=== PATIENT | female | born 1975 | race Caucasian/White ===

== ENCOUNTER → 2021-06-02 | Outpatient (CLI) | payer OTHER ==
[2021-06-02 13:30] VITALS: BP 114/78; PULSE 79; RESP 18; TEMP 98.4
--- NOTE | 2021-06-02 14:40 | P.HPOB ---
History of Present Illness H&P Date: 06/02/21 Chief Complaint: The patient is here for her routine gynecologic exam. This is a 45-year-old 031 with an LMP of the end of April. The patient is here to establish with this office. The patient is without gynecologic complaints. Menstrual periods are regular every month lasting about 7 days with some spotting before and after. The patient states she has a long history of frequent UTIs and averages about 6 per year. Recently she went about 7 months without being treated for a UTI. She had seen a uro- jewelry sorter for this and she was told by somebody that she has interstitial cystitis. She has a ParaGard IUD in place and this was placed about 9 years ago. Review of Systems She is getting about 10 pounds over the past year. Respiratory: She states she can get slightly short of breath with strenuous exertion. Cardiac: Occasional fluttering when she tries to quit smoking. GI: No problems. Past Medical History Past Medical History: Asthma Additional Past Medical History / Comment(s): Frequent UTIs. 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 History of Any Multi-Drug Resistant Organisms: None Reported Past Surgical History: Orthopedic Surgery Additional Past Surgical History / Comment(s): Knee surgery. D&C. Upper endoscopy with colonoscopy in 2000. Past Psychological History: No Psychological Hx Reported Smoking Status: Current every day smoker (Half a pack per day.) Past Alcohol Use History: Occasional (6 per week) Past Drug Use History: None Reported Additional History: She has been since 2019 and this is her second marriage. They have been together since 2003. 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 - Past Family History Mother Family Medical History: COPD Additional Family Medical History / Comment(s): Maternal grandmother had diabetes. Father Family Medical History: COPD Additional Family Medical History / Comment(s): Diverticulosis. Medications and Allergies Home Medications Medication Instructions Recorded Confirmed Type Albuterol Inhaler [Ventolin Hfa 1 puff INHALATION RT-TID 06/02/21 06/02/21 History Inhaler] Iron 18 mg PO DAILY 06/02/21 06/02/21 History Allergies Allergy/AdvReac Type Severity Reaction Status Date / Time No Known Allergies Allergy Unverified 06/02/21 13:22 Exam Vital Signs Temp Pulse Resp BP Pulse Ox 06/02/21 13:24 98.4 F 79 18 114/78 100 Intake and Output 06/01/21 06/02/21 06/02/21 22:59 06:59 14:59 Other: Weight 74.389 kg Height 5 feet 4 inches, weight 164 pounds, BMI 28.2. This is a well-developed well-nourished white female who is alert and oriented times 3 in no acute distress. HEENT: Within normal limits. NECK: Supple without mass or thyromegaly. CHEST AND LUNGS: Clear to auscultation. HEART: Regular rate and rhythm. BREASTS: Are without mass or discharge. AXILLARY EXAM: Negative for adenopathy. BACK: Negative for CVA tenderness. ABDOMEN: Soft, nontender, without palpable masses. PELVIC EXAM: Normal external genitalia. Cervix and vagina appear normal. There is an IUD string protruding from the cervix by about 1 cm. There is no unusual discharge. There is no evidence of prolapse. The uterus is midposition, nongravid size and nontender. There are no palpable adnexal masses or tenderness. RECTAL EXAM: negative for mass or tenderness and is negative for occult blood. EXTREMITIES: Nontender. IMPRESSION: 1. 45-year-old female with normal gynecologic exam who has a ParaGard IUD in place. 2. History of frequent UTIs and possible interstitial cystitis per the patient. PLAN: 1. Pap smear cotest was performed. 2. Self breast awareness was discussed with the patient. 3. Screening mammogram was done earlier this year at a different hospital. 4. I recommended that she try to quit smoking and we have discussed many reasons why this is important. 5. Osteoporosis prevention was discussed. I have stressed the importance of adequate calcium, vitamin D and regular exercise. Recommended amounts of calcium and vitamin D were also discussed. 6. She will keep a menstrual calendar and call if menstrual problems. 7. She understands the ParaGard IUD is approved for 10 years. She states she will consider control options. 8. We have discussed ways trying to prevent urinary tract infections. I stressed the importance of trying to empty the bladder as completely as possible by giving herself more time and by relaxing when she voids. 9. She was advised to return in one year for her annual well woman exam and as needed.
--- NOTE | 2021-06-10 09:12 | P.PN ---
Progress Note - Text Progress Note Date: 06/10/21 OUTPATIENT FOLLOW-UP NOTE TEST(S)/RESULTS: Test results from 06/02/2021 include negative Pap smear and negative high risk HPV testing. METHOD OF NOTIFICATION: The patient was notified by phone. PATIENT COMMENTS: She is happy to hear these results. DIAGNOSIS: Negative Pap smear cotest DISCUSSION: PLAN: She was advised to return in one year for her annual well woman exam.
== END | disposition home or self-care (01) ==
LOC: WWCWWP 13:10
PROVIDERS: ATTEND Obstetrics & Gynecology
DX: Z01.419 Encounter for gynecological examination (general) (routine) without abnormal findings (principal); Z97.5 Presence of (intrauterine) contraceptive device; Z87.440 Personal history of urinary (tract) infections; J45.909 Unspecified asthma, uncomplicated; F17.210 Nicotine dependence, cigarettes, uncomplicated; Z79.51 Long term (current) use of inhaled steroids

== ENCOUNTER → 2022-08-05 | Outpatient (CLI) | payer OTHER ==
--- NOTE | 2022-08-18 08:09 | MM ---
Reason for Exam: Screening (asymptomatic). Last mammogram was performed 1 year(s) and 9 month(s) ago. Patient History: Menarche at age 11. First Full-Term at age 36. Late child-bearing (after 30). Perimenopausal. Last menstrual period: 07/17/2022 Risk Values: Julia 5 year model risk: 1.3%. NCI Lifetime model risk: 12.5%. Prior Study Comparison: 01/10/2019 Bilateral MG 3D screening mammo w/cad, [facility]. 10/21/2020 Bilateral MG 3D screening mammo w/cad, [facility]. Tissue Density: The breast tissue is heterogeneously dense. This may lower the sensitivity of mammography. Findings: Analyzed By CAD. There is no suspicious group of microcalcifications or new suspicious mass in either breast. Overall Assessment: Negative, BI-RAD 1 Management: Screening Mammogram of both breasts in 1 year. A clinical breast exam by your physician is recommended on an annual basis and results should be correlated with mammographic findings. Electronically signed and approved by: Uriah Triplett M.D. Radiologis
== END | disposition home or self-care (01) ==
LOC: RADMAMWWP 16:15
PROVIDERS: ATTEND Obstetrics & Gynecology
DX: Z12.31 Encounter for screening mammogram for malignant neoplasm of breast (principal)
CPT/HCPCS: 77063; 77067

== ENCOUNTER → 2023-08-23 | Outpatient (CLI) | payer OTHER ==
[2023-08-23 11:56] VITALS: BP 120/83; PULSE 73; RESP 17; TEMP 98.6
--- NOTE | 2023-08-23 15:00 | P.HPOB ---
History of Present Illness H&P Date: 08/23/23 Chief Complaint: The patient is here for her routine gynecologic exam and ma mmogram. This is a 47-year-old 031 with an LMP of 06/27/2023. The patient has had a Mirena IUD in place for more than 10 years. Last year her menstrual periods were coming monthly lasting 7 days with some degree of spotting before each menstrual flow. This past year she has been having much more spotting in between menstrual periods. Her menstrual periods have been about every 1-2 months. During the menstrual. She has had normal flow. She has had spotting on many days throughout the month. She states the spotting seems to be different than her previous spotting in that it now seems to be some blood within a thin or liquid. She has had a fairly long history of urologic problems and has been seen urologists for stones in the ureter as well as ureteral stenosis. She underwent surgery in January 2023 where a segment of the stenotic ureter was removed and the ureter was then reconnected to itself. She states she has had some leakage since the time of that surgery and this is why she can't be certain as to where the blood is coming from. She has had situations where they have detected blood in her urine. She states she can't be sure if this is blood from the vagina or if it is some blood in leaked urine. She is currently on antibiotics for suspected UTI. She was treated after she developed kidney pains and the her urine testing showed some type of infection per she has 1-1/2 days left of her antibiotics. Review of Systems The patient has gained 9 pounds over the last year. She denies respiratory, cardiac, or G.I. problems. Past Medical History Past Medical History: Asthma Additional Past Medical History / Comment(s): Frequent UTIs. Kidney stone. Left Ureteral stenosis. 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 History of Any Multi-Drug Resistant Organisms: None Reported Past Surgical History: Orthopedic Surgery Additional Past Surgical History / Comment(s): Knee surgery. D&C. Upper endoscopy with colonoscopy in 2020. Left ureteral stent placement and removal 2021. Left ureteral resection and reanastomosis 2022. Past Psychological History: No Psychological Hx Reported Smoking Status: Former smoker Past Alcohol Use History: Occasional (3-5 drinks per week.) Additional Past Alcohol Use History / Comment(s): She quit smoking in January 2023. Past Drug Use History: None Reported Additional History: She has been since 2019 and this is her second marriage. She has been with her since 2003. 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 - Past Family History Mother Family Medical History: COPD Additional Family Medical History / Comment(s): Maternal grandmother had diabetes. Father Family Medical History: COPD Additional Family Medical History / Comment(s): Diverticulosis. Medications and Allergies Home Medications Medication Instructions Recorded Confirmed Type Albuterol Inhaler [Ventolin Hfa 1 puff INHALATION RT-TID 06/02/21 08/23/23 History Inhaler] Iron 18 mg PO DAILY 06/02/21 08/23/23 History Cranberry Fruit Extract [Cranberry] 500 mg PO DAILY 07/21/22 08/23/23 History Oxybutynin Chloride [oxyBUTYnin 10 mg PO DAILY 07/21/22 08/23/23 History chloride ER] Psyllium Husk [Metamucil] 0.4 gm PO DAILY 07/21/22 08/23/23 History Allergies Allergy/AdvReac Type Severity Reaction Status Date / Time No Known Allergies Allergy Unverified 08/23/23 11:46 Exam Vital Signs Temp Pulse Resp BP Pulse Ox 08/23/23 11:46 98.6 F 73 17 120/83 97 Intake and Output 08/22/23 08/23/23 08/23/23 22:59 06:59 14:59 Other: Weight 76.657 kg Height 5 feet 3 inches, weight 169 pounds, BMI 29.9. This is a well-developed well-nourished white female who is alert and oriented times 3 in no acute distress. HEENT: Within normal limits. NECK: Supple without mass or thyromegaly. CHEST AND LUNGS: Clear to auscultation. HEART: Regular rate and rhythm. BREASTS: Are without mass or discharge. AXILLARY EXAM: Negative for adenopathy. BACK: Negative for CVA tenderness. ABDOMEN: Soft, nontender, without palpable masses. PELVIC EXAM: Normal external genitalia. Cervix and vagina appear normal. The IUD string protruded from the cervix by about 2 cm. There is no unusual discharge. The cervix was slightly friable upon doing the Pap smear. There is no evidence of prolapse. The uterus is midposition, nongravid size and nontender. There are no palpable adnexal masses or tenderness. RECTAL EXAM: negative for mass or tenderness and is negative for occult blood. EXTREMITIES: Nontender. The decision was made to remove the IUD at this visit. We discussed how with the abnormal frequent spotting the IUD should be removed to determine if this is causing the abnormal bleeding. She understands that this would remove her current method of control and that she should take precautions to prevent . She states she is infrequently sexually active and she will use condoms if she is sexually active. We discussed cost possible risks of removing the IUD including bleeding and potential laceration of the uterus or cervix. After this discussion she wanted to proceed with the removal of her IUD. Procedure: The patient signed a consent for the removal of the IUD. All questions were answered. The string was grasped with a forcep instrument and the IUD was removed without difficulty. The patient tolerated the procedure well. The IUD was intact. A small amount of blood was noted at the cervix immediately after removing the IUD. Estimated blood loss 1 mL. There were no complications. IMPRESSION: 1. 47-year-old female with menometrorrhagia consisting of intermenstrual spotting most days of the month. Differential diagnosis will include uterine bleeding as well as urinary leakage with hematuria, given her urologic problems she has been dealing with. Uterine bleeding potentially could have been caused by the ParaGard IUD which was in place. 2. History of left ureteral problems and she is status post left ureteral resection and reanastomosis. PLAN: 1. Pap smear cotest was performed. This was done slightly early because of the abnormal bleeding she has been experiencing. 2. Breast awareness was discussed with the patient. 3. Screening mammogram was done today. 4. IUD was removed today as described in the description above. 5. Continue to keep a menstrual calendar. We will make an appointment to be reevaluated in 3 months and will also be scheduled for an endometrial biopsy at that time. She will also try to determine whether the spotting she frequently has is coming from her urine. 6. She will either abstain from sexual intercourse or use condoms every time she does have sexual intercourse. 7. She will continue to follow-up with her urologist regarding her urologic issues.
--- NOTE | 2023-08-24 23:27 | MM ---
Reason for Exam: Screening (asymptomatic). Last mammogram was performed 1 year(s) and 1 month(s) ago. Patient History: Menarche at age 11. First Full-Term at age 36. Late child-bearing (after 30). Perimenopausal. Risk Values: Julia 5 year model risk: 1.3%. NCI Lifetime model risk: 12.3%. Prior Study Comparison: 01/10/2019 Bilateral MG 3D screening mammo w/cad, [facility]. 10/21/2020 Bilateral MG 3D screening mammo w/cad, [facility]. 08/05/2022 Bilateral MG 3D screening mammo w/cad, [facility]. Tissue Density: There are scattered fibroglandular densities. Findings: Analyzed By CAD. Unchanged bilateral areas of asymmetric density. There is no suspicious group of microcalcifications or new suspicious mass in either breast. Overall Assessment: Benign, BI-RAD 2 Management: Screening Mammogram of both breasts in 1 year. . Patient should continue monthly self-breast exams. A clinical breast exam by your physician is recommended on an annual basis. This exam should not preclude additional follow-up of suspicious palpable abnormalities. Note on Julia scores and lifetime risk: 1. A Julia score greater than 3% is considered moderate risk. If this is the case, consider specialist referral to assess eligibility for a risk reducing agent. 2. If overall lifetime risk for the development of breast cancer is 20% or higher, the patient may qualify for future screening with alternating mammogram and breast MRI. Electronically signed and approved by: Franki Mejía M.D. Radiologist
== END ==
LOC: WWCWWP 11:17
PROVIDERS: ATTEND Obstetrics & Gynecology
DX: Z12.31 Encounter for screening mammogram for malignant neoplasm of breast (principal); N92.1 Excessive and frequent menstruation with irregular cycle; N28.89 Other specified disorders of kidney and ureter; J45.909 Unspecified asthma, uncomplicated; Z87.440 Personal history of urinary (tract) infections; Z87.442 Personal history of urinary calculi; Z87.891 Personal history of nicotine dependence; Z79.899 Other long term (current) drug therapy
CPT/HCPCS: 77063; 77067

== ENCOUNTER → 2025-03-26 | Outpatient (CLI) | payer OTHER ==
[2025-03-26 14:00] VITALS: BP 123/77; PULSE 75; RESP 16; TEMP 98.3
--- NOTE | 2025-03-26 14:36 | P.HPOB ---
History of Present Illness H&P Date: 03/26/25 Chief Complaint: The patient is here for her routine gynecologic exam and ma mmogram. This is a 49-year-old -0-3-1 with an LMP of September 2024. The patient was having occasional vaginal spotting and had an FSH on 12/07/2023 which was 79. She has been having occasional hot flashes, especially at night and some emotional changes. Vaginal spotting became more and more infrequent and she has not had any spotting for more than 6 months now. She has been seeing a urolo gist for her urinary problems with frequent UTIs and kidney infections. She has been started on daily nitrofurantoin 50 mg. She was told by her urologist that if she continues to have frequent UTIs and kidney infections that they may possibly remove the left kidney. Review of Systems The patient's weight has been stable over the last year. She denies respiratory, cardiac, or G.I. problems. Past Medical History Past Medical History: Asthma Additional Past Medical History / Comment(s): Frequent UTIs. Kidney stone. Left Ureteral stenosis. 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 History of Any Multi-Drug Resistant Organisms: None Reported Past Surgical History: Orthopedic Surgery Additional Past Surgical History / Comment(s): Knee surgery. D&C. Upper endoscopy with colonoscopy in 2020. Left ureteral stent placement and removal 2021. Laparoscopic left ureteral surgery. Past Psychological History: No Psychological Hx Reported Smoking Status: Current every day smoker Past Alcohol Use History: Occasional (3-6 drinks per week.) Additional Past Alcohol Use History / Comment(s): She quit smoking in January 2023 . She does use nicotine gum on occasion. Past Drug Use History: None Reported Additional History: Been since 2019 and this is her second marriage. She has been with this since 2003. 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 - Past Family History Mother Family Medical History: COPD Additional Family Medical History / Comment(s): Maternal grandmother had diabetes. Father Family Medical History: COPD Additional Family Medical History / Comment(s): Diverticulosis. Medications and Allergies Home Medications Medication Instructions Recorded Confirmed Type Albuterol Inhaler [Ventolin Hfa 1 puff INHALATION RT-TID 06/02/21 12/07/23 History Inhaler] Cranberry Fruit Extract [Cranberry] 500 mg PO DAILY 07/21/22 12/07/23 History Psyllium Husk [Metamucil] 0.4 gm PO DAILY 07/21/22 12/07/23 History Bacillus Coagulans [Probiotic 1 each PO DAILY 03/26/25 03/26/25 History Women] Multivit-Min/FA/Lycopen/Lutein 1 each PO DAILY 03/26/25 03/26/25 History [Centrum Silver Tablet] Nitrofurantoin Macrocrystal 50 mg PO DAILY 03/26/25 03/26/25 History [Macrodantin] Allergies Allergy/AdvReac Type Severity Reaction Status Date / Time No Known Allergies Allergy Unverified 03/26/25 13:49 Exam Vital Signs Temp Pulse Resp BP Pulse Ox 03/26/25 13:55 98.3 F 75 16 123/77 94 L Intake and Output 03/25/25 03/26/25 03/26/25 22:59 06:59 14:59 Other: Weight 76.204 kg Height 5 feet 4 inches, weight 168 pounds, BMI 28.8. This is a well-developed well-nourished white female who is alert and oriented times 3 in no acute distress. HEENT: Within normal limits. NECK: Supple without mass or thyromegaly. CHEST AND LUNGS: Clear to auscultation. HEART: Regular rate and rhythm. BREASTS: Are without mass or discharge. AXILLARY EXAM: Negative for adenopathy. BACK: Negative for CVA tenderness. ABDOMEN: Soft, nontender, without palpable masses. PELVIC EXAM: Normal external genitalia with minimal atrophy. Cervix and vagina appear normal with minimal atrophy. There is no unusual discharge. There is no evidence of prolapse. The uterus is midposition, nongravid size and nontender. There are no palpable adnexal masses or tenderness. RECTAL EXAM: Rectovaginal exam is negative for mass or tenderness and is negative for occult blood. There are small noninflamed external hemorrhoids noted. EXTREMITIES: Nontender. IMPRESSION: 1. 49-year-old perimenopausal female who has been amenorrheic for more than 6 months, with normal gynecologic exam. 2. This Pap smear on 08/23/2023 showed ASCUS with negative high-risk HPV testing. 3. History of frequent UTIs currently on daily nitrofurantoin for prophylaxis. She continues to see a urologist for these problems. PLAN: 1. Pap smear was deferred. We will plan on repeating the Pap smear cotest approximately 2 to 3 years after her ASCUS Pap smear. We will plan on doing this next year. 2. Self breast awareness was discussed with the patient. We have also discussed symptoms associated with inflammatory breast cancer. 3. Screening mammogram will be done today. 4. Osteoporosis prevention was discussed. I have stressed the importance of adequate calcium, vitamin D and regular exercise. Recommended amounts of calcium and vitamin D were also discussed. 5. She was advised to return in one year for her annual well woman exam and as needed.
--- NOTE | 2025-03-26 15:14 | MM ---
Reason for Exam: Screening (asymptomatic). Last mammogram was performed 1 year(s) and 7 month(s) ago. Patient History: Menarche at age 11. First Full-Term at age 36. Late child-bearing (after 30). Perimenopausal. Risk Values: Julia 5 year model risk: 1.4%. NCI Lifetime model risk: 12.0%. Prior Study Comparison: 10/21/2020 Bilateral MG 3D screening mammo w/cad, [facility]. 08/05/2022 Bilateral MG 3D screening mammo w/cad, [facility]. 08/23/2023 Bilateral MG 3D screening mammo w/cad, [facility]. Tissue Density: There are scattered areas of fibroglandular density. Findings: Analyzed By CAD. There is no suspicious group of microcalcifications or new suspicious mass in either breast. Overall Assessment: Negative, BI-RAD 1 Management: Screening Mammogram of both breasts in 1 year. . Patient should continue monthly self-breast exams. A clinical breast exam by your physician is recommended on an annual basis. This exam should not preclude additional follow-up of suspicious palpable abnormalities. Note on Julia scores and lifetime risk: 1. A Julia score greater than 3% is considered moderate risk. If this is the case, consider specialist referral to assess eligibility for a risk reducing agent. 2. If overall lifetime risk for the development of breast cancer is 20% or higher, the patient may qualify for future screening with alternating mammogram and breast MRI. [facility], , 03/26/2025 3:11 PM. Electronically signed and approved by: Julio C Yost M.D.
== END ==
LOC: WWCWWP 13:31
PROVIDERS: ATTEND Obstetrics & Gynecology
DX: Z01.419 Encounter for gynecological examination (general) (routine) without abnormal findings (principal); Z12.31 Encounter for screening mammogram for malignant neoplasm of breast; F17.200 Nicotine dependence, unspecified, uncomplicated; Z78.0 Asymptomatic menopausal state
CPT/HCPCS: 77063; 77067